=== PATIENT | female | born 1990 | race Caucasian/White ===

== ENCOUNTER 2017-01-04 17:40 | Emergency (ER) | payer MEDICAID ==
[2014-12-31 06:07] VITALS: BMI 33.7
[~2017-01-04 17:40] MED LIST: IBUPROFEN600 MG PO; PERCOCET 5-3251 TAB PO; ZOVIRAX800 MG PO
[2017-01-04 18:29] LABS: BASOPHILS 0.2 % (0-2); EOSINOPHILS 1.9 % (0-7); HEMOGLOBIN 13.8 g/dL (12-16); IMMATURE GRANULOCYTES 0.2 % (0-5); LYMPHOCYTES 14.7 % (15-50); MCH 28.8 pg (26.0-34.0); MCHC 32.9 g/dL (31.0-37.0); MCV 87.5 fL (80.0-100.0); MEAN PLATELET VOLUME 9.8 fL (7.4-10.4); MONOCYTES 6.1 % (2-11); NEUTROPHILS 76.9 % (40-80); PLATELET COUNT 332 10x3/uL (130-400); RDW 14.2 % (11.5-14.5); WBC 12.3 10x3/uL (4.8-10.8)
[2017-01-04 18:42] LABS: HCG SERUM NEGATIVE (NEGATIVE)
[2017-01-04 19:13] LABS: APPEARANCE HAZY (CLEAR); BILIRUBIN NEGATIVE (NEGATIVE); COLOR YELLOW (YELLOW); GLUCOSE NEGATIVE (NEGATIVE); KETONE NEGATIVE (NEGATIVE); LEUKOCYTE ESTERASE TRACE (NEGATIVE); NITRITE NEGATIVE (NEGATIVE); PROTEIN NEGATIVE (NEGATIVE); UROBILINOGEN NORMAL (NORMAL)
[2017-01-04 19:14] LABS: BACTERIA MODERATE /hpf (NONE SEEN); MUCUS <1+ /lpf (NONE SEEN); RED CELLS - URINE 25-50 /hpf (0-5)
== END 2017-01-04 19:48 | disposition home or self-care (01) ==
LOC: D.ER 17:40
PROVIDERS: Emergency Medicine
DX: N39.0 Urinary tract infection, site not specified (principal); R10.9 Unspecified abdominal pain

== ENCOUNTER 2017-01-10 17:30 | Emergency (ER) | payer MEDICAID ==
[2014-12-31 06:07] VITALS: BMI 33.7
[2017-01-10 18:10] LABS: BASOPHILS 0.2 % (0-2); EOSINOPHILS 2.7 % (0-7); HEMATOCRIT 40.6 % (36.0-48.0); HEMOGLOBIN 13.5 g/dL (12-16); IMMATURE GRANULOCYTES 0.1 % (0-5); MCHC 33.3 g/dL (31.0-37.0); MCV 87.3 fL (80.0-100.0); MEAN PLATELET VOLUME 9.8 fL (7.4-10.4); PLATELET COUNT 387 10x3/uL (130-400); RBC 4.65 10x6/uL (4.00-5.40); RDW 13.9 % (11.5-14.5); WBC 12.4 10x3/uL (4.8-10.8)
[2017-01-10 18:24] LABS: APPEARANCE CLEAR (CLEAR); BILIRUBIN NEGATIVE (NEGATIVE); COLOR YELLOW (YELLOW); GLUCOSE NEGATIVE (NEGATIVE); KETONE NEGATIVE (NEGATIVE); NITRITE NEGATIVE (NEGATIVE); PROTEIN NEGATIVE (NEGATIVE); SPECIFIC GRAVITY 1.015 (1.005-1.020); UROBILINOGEN NORMAL (NORMAL)
[2017-01-10 18:26] LABS: BACTERIA FEW /hpf (NONE SEEN); LEUKOCYTE ESTERASE 1+ (NEGATIVE); RED CELLS - URINE 0-5 /hpf (0-5); WHITE CELLS - URINE 25-50 /hpf (0-5)
== END 2017-01-10 22:38 | disposition home or self-care (01) ==
LOC: D.ER 17:30
PROVIDERS: Emergency Medicine
DX: R10.32 Left lower quadrant pain (principal); N39.0 Urinary tract infection, site not specified